=== PATIENT | male | born 1965 | race Two or more races ===

== ENCOUNTER 2020-07-11 14:12 | Outpatient (CLI) | payer OTHER ==
[2020-07-14] MEDS ORDERED: TRAMADOL PO (12:18)
[2020-07-14] MEDS ORDERED: MELOXICAN PO (12:19)
== END 2020-07-11 16:21 | disposition home or self-care (01) ==
LOC: OFIC 805 14:12
PROVIDERS: ATTEND Otolaryngology
DX: J38.3 Other diseases of vocal cords (principal); R49.0 Dysphonia

== ENCOUNTER 2020-07-20 08:46 | Outpatient (CLI) | payer OTHER ==
[~2020-07-20 08:46] MED LIST: MELOXICAN PO; TRAMADOL PO
== END 2020-07-20 15:58 | disposition home or self-care (01) ==
LOC: OFIC 805 08:46
PROVIDERS: ATTEND Otolaryngology
DX: R49.0 Dysphonia (principal); J38.3 Other diseases of vocal cords